=== PATIENT | female | born 1940 | race Caucasian/White ===

== ENCOUNTER → 2016-03-07 | Outpatient (CLI) | payer MEDICARE, BC ==
[2016-03-07 10:05] LABS: ALT 39 U/L (9-52); AST 26 U/L (14-36); Cholesterol 212 mg/dL (<200); HDL Cholesterol 65 mg/dL (40-60); Triglycerides 159 mg/dL (<150)
== END | disposition home or self-care (01) ==
LOC: LABWHC1 08:58
PROVIDERS: ATTEND Internal Medicine Interventional Cardiology
DX: E78.2 Mixed hyperlipidemia (principal)
CPT/HCPCS: 36415; 80061; 84450; 84460

== ENCOUNTER → 2016-10-12 | Outpatient (CLI) | payer MEDICARE, BC ==
--- NOTE | 2016-10-13 07:02 | MM ---
Reason for exam: screening (asymptomatic). Last mammogram was performed 1 year ago. History: Patient is postmenopausal and history of other cancer. Benign cyst aspiration of the left breast, April 2013. Benign stereotactic core biopsy of the right breast, May 06, 1998. Benign core biopsy of the right breast. Benign excisional biopsy of the left breast. Took estrogen for 25 years beginning at age 36. Physical Findings: A clinical breast exam by your physician is recommended on an annual basis and results should be correlated with mammographic findings. MG 3D Screening Mammo W/Cad Bilateral CC and MLO view(s) were taken. Prior study comparison: October 06, 2015, bilateral MG 3d screening mammo w/cad. September 21, 2014, bilateral MG diagnostic mammo w CAD SAUL. The breast tissue is heterogeneously dense. This may lower the sensitivity of mammography. Previous mammotome biopsy in the right breast. There is chronic nodularity bilaterally. There is no dominant lesion. No significant changes when compared with prior studies. ASSESSMENT: Benign, BI-RAD 2 RECOMMENDATION: Routine screening mammogram of both breasts in 1 year.
== END | disposition home or self-care (01) ==
LOC: RADMAMWWP 08:50
PROVIDERS: ATTEND Family Medicine
DX: Z12.31 Encounter for screening mammogram for malignant neoplasm of breast (principal)
CPT/HCPCS: 77063; G0202

== ENCOUNTER → 2017-08-07 | Outpatient (CLI) | payer MEDICARE, BC ==
--- NOTE | 2017-08-07 20:02 | CONS ---
CONSULTATION DATE OF SERVICE: 08/07/2017. REASON FOR CONSULTATION: Feeling tired all the time. HISTORY: Carli is 77, and she is coming in for sleep apnea evaluation. She was referred to me by Dr. Gaston. She has been feeling progressively more fatigued and somewhat sleepy. She goes to bed around 10 p.m., wakes up 6 a.m. in the morning. Not sure if she snores or if he quits breathing. On a few occasions she was told to be restless in her legs. She is not aware of her sleep symptoms in general, as the patient is and her around five years ago and she is sleeping alone at home. Her current Truckee score of 15. No sleep paralysis. No hallucinations. No frequent arousals, gasping or choking sensation at nighttime. PAST MEDICAL HISTORY: Hyperlipidemia, hypertension, CVA, depression, peripheral neuropathy and hypothyroidism. SURGICAL HISTORY: Includes bowel obstruction requiring bowel resection, hysterectomy, back surgery x2, cholecystectomy. DRUG ALLERGIES: SULFA, RHONDA INHIBITORS, AMOXICILLIN. OUTPATIENT MEDICATION: 1. Levothyroxine 75 mcg p.o. daily. 2. Losartan 100 mg p.o. daily. 3. Plavix 75 mg p.o. daily. 4. Coreg 12.5 mg half tablet in the morning. 5. Coenzyme Q. 6. Vitamin D3 and calcium. 7. Fish oil. 8. Omeprazole 20 mg p.o. daily. 9. Gabapentin 100 mg at bedtime. 10.Amlodipine 5 mg p.o. daily. 11.Zoloft 100 mg p.o. daily. 12.Pravastatin 40 mg p.o. daily. SOCIAL HISTORY: The patient is a nonsmoker. No history of alcohol. No history of IV drugs. She is . FAMILY HISTORY: Negative for sleep apnea. REVIEW OF SYSTEMS: A 12-point review of system was done. Positive findings are mentioned above in the history of present illness. PHYSICAL EXAMINATION: Her current vitals, BP is 123/52, pulse 64, respirations 16, temperature 98.2, saturation 96% on room air. Weight is 146, height is 5 feet 2 inches, and neck size is 13.5 inches, BMI 26.2. GENERAL APPEARANCE: Calm, comfortable. No acute distress. HEAD: Atraumatic, normocephalic. NECK: Supple. There is no JVD. No goiter or neck masses. LUNGS: Clear to auscultation. HEART: Sounds regular rhythm. Normal S1, S2. No S3. No murmurs. ABDOMEN: Soft, nontender. No organomegaly. EXTREMITIES: No edema. No cyanosis. No clubbing. NEUROLOGIC: The patient is alert x3. There is no focal neurological deficits. IMPRESSION: 1. Excessive fatigue with limited hypersomnia. Truckee score, however, is elevated at 15. Overall suspicion for sleep apnea is low, yet this needs to be further investigated. 2. Hyperlipidemia. 3. Hypertension. 4. History of cerebrovascular accident. 5. History of depression. 6. History of peripheral neuropathy. 7. History of hypothyroidism. PLAN: 1. We will proceed with a sleep polysomnogram to investigate the patient's symptoms further. 2. We will continue to follow. ALFIEL / TERESAN: [id number] /
== END | disposition home or self-care (01) ==
LOC: SLEEP 14:11
PROVIDERS: ATTEND Internal Medicine Critical Care Medicine
DX: G47.10 Hypersomnia, unspecified (principal); E78.5 Hyperlipidemia, unspecified; I10 Essential (primary) hypertension; Z86.73 Personal history of transient ischemic attack (TIA), and cerebral infarction without residual deficits; Z86.59 Personal history of other mental and behavioral disorders; Z86.79 Personal history of other diseases of the circulatory system; Z86.39 Personal history of other endocrine, nutritional and metabolic disease; Z98.890 Other specified postprocedural states; Z90.49 Acquired absence of other specified parts of digestive tract; Z90.710 Acquired absence of both cervix and uterus; Z79.899 Other long term (current) drug therapy; Z79.02 Long term (current) use of antithrombotics/antiplatelets
CPT/HCPCS: 99211

== ENCOUNTER → 2017-10-23 | Outpatient (CLI) | payer MEDICARE, BC ==
--- NOTE | 2017-10-23 15:30 | SFUN ---
SLEEP CENTER FOLLOW UP NOTE 77-year-old female patient coming in to discuss the results of the sleep study. I performed a screening polysomnogram with this patient. The patient was found to have mild positional obstructive sleep apnea with an AHI of 9, worse in the supine body position. Never the less, the patient tells me that she is not having hypersomnia or sleepiness during the day. She sleeps on her side at home. We opted not to give this patient CPAP therapy at this point in time. We opted to monitor clinically. The patient is committed to lose 10% of her body weight over the next few months. Otherwise she is doing well. Sleep quality is good. She is waking up refreshed and alert during the day. No history of angina, no heartburn. Her current condition is stable for now. The BP is 137/54, pulse 62, respirations 16, temp 98.6, weight is 149. Height is 5 feet 2 inches. Saturation 94% on room air. BMI is 27.2. GENERAL APPEARANCE: Calm, comfortable. HEENT: Atraumatic, normocephalic. Neck is supple. No JVD. No goiter or neck mass. LUNGS: Clear to auscultation. HEART: Sounds regular rate and rhythm. Normal S1, S2. No S3. No murmurs. ABDOMEN: Soft, nontender. No organomegaly. EXTREMITIES: No edema. No cyanosis or clubbing. IMPRESSION: 1. Mild obstructive sleep apnea, positional, AHI of 9.1. 2. Adequate sleep architecture and deficiency. 3. Cerebrovascular accident history of. 4. Depression. 5. Hypertension. 6. Hyperlipidemia. PLAN: 1. Encourage sleeping on her sides and tennis ball technique will be implemented. 2. Encourage losing weight in the order of 10% of her body weight. 3. See me back in a year's time. No need for treatment as long as the patient is asymptomatic at this point in time. MMODL / IJN: [id number] /
== END | disposition home or self-care (01) ==
LOC: SLEEP 13:16
PROVIDERS: ATTEND Internal Medicine Critical Care Medicine
DX: G47.33 Obstructive sleep apnea (adult) (pediatric) (principal); G47.9 Sleep disorder, unspecified; F32.9 Major depressive disorder, single episode, unspecified; I10 Essential (primary) hypertension; E78.5 Hyperlipidemia, unspecified; Z86.73 Personal history of transient ischemic attack (TIA), and cerebral infarction without residual deficits

== ENCOUNTER → 2017-11-02 | Outpatient (CLI) | payer MEDICARE, BC ==
--- NOTE | 2017-11-02 17:19 | US ---
EXAMINATION TYPE: US venous doppler duplex LE LT DATE OF EXAM: 11/02/2017 5:01 PM COMPARISON: NONE CLINICAL HISTORY: R60.0 Swelling Left lower extremity. SIDE PERFORMED: left TECHNIQUE: The lower extremity deep venous system is examined utilizing real time linear array sonog carlos with graded compression, doppler sonography and color-flow sonography. VESSELS IMAGED: External Iliac Vein (EIV) Common Femoral Vein Deep Femoral Vein Greater Saphenous Vein * Femoral Vein Popliteal Vein Small Saphenous Vein * Proximal Calf Veins (* superficial vessels) Left Leg: Negative for DVT Bakers cyst measuring 4.5 x 2.1 x 3.4cm IMPRESSION: There is a right-sided popliteal cyst. No evidence of deep venous thrombosis in the left leg.
== END | disposition home or self-care (01) ==
LOC: RADUSMAIN 16:28
PROVIDERS: ATTEND Physician Assistant
DX: M71.21 Synovial cyst of popliteal space [Baker], right knee (principal); R60.0 Localized edema

== ENCOUNTER → 2017-11-26 | Outpatient (CLI) | payer MEDICARE, BC ==
--- NOTE | 2017-11-27 12:14 | ECHOF ---
Referral Reason:R94.31 ABN EKG MEASUREMENTS -------- HEIGHT: 157.5 cm WEIGHT: 67.1 kg BP: RVIDd: 2.3 cm (< 3.3) IVSd: 1.5 cm (0.6 - 1.1) LVIDd: 3.3 cm (3.9 - 5.3) LVPWd: 1.4 cm (0.6 - 1.1) IVSs: 1.8 cm LVIDs: 1.4 cm LVPWs: 1.6 cm LAESV Index (A-L): 25.63 ml/m Ao Diam: 3.1 cm (2.0 - 3.7) AV Cusp: 2.2 cm (1.5 - 2.6) LA Diam: 3.5 cm (2.7 - 3.8) MV EXCURSION: 6.833 mm (> 18.000) MV EF SLOPE: 23 mm/s (70 - 150) EPSS: 0.4 cm MV E Kaveh: 0.75 m/s MV DecT: 329 ms MV A Kaveh: 1.06 m/s MV E/A Ratio: 0.71 AR PHT: 580 ms RAP: 5.00 mmHg RVSP: 29.61 mmHg FINDINGS -------- Sinus rhythm. This was a technically good study. The left ventricular size is normal. There is borderline concentric left ventricular hypertrophy. Overall left ventricular systolic function is normal with, an EF between 55 - 60 %. The right ventricle is normal in size and function. The left atrium is normal in size. The right atrium is normal in size. Aortic valve is trileaflet and is mildly thickened. There is mild aortic regurgitation. The mitral valve leaflets are mildly thickened. Mild mitral regurgitation is present. Moderate tricuspid regurgitation present. The right ventricular systolic pressure, as measured by D oppler, is 29.61mmHg. Pulmonic valve appears structurally normal. The aortic root size is normal. Normal inferior vena cava with normal inspiratory collapse consistent with estimated right atrial pre ssure of 5 mmHg. The pericardium is normal. CONCLUSIONS -------- 1. Sinus rhythm. 2. This was a technically good study. 3. The left ventricular size is normal. 4. There is borderline concentric left ventricular hypertrophy. 5. Overall left ventricular systolic function is normal with, an EF between 55 - 60 %. 6. The right ventricle is normal in size and function. 7. The left atrium is normal in size. 8. The right atrium is normal in size. 9. Aortic valve is trileaflet and is mildly thickened. 10. There is mild aortic regurgitation. 11. The mitral valve leaflets are mildly thickened. 12. Mild mitral regurgitation is present. 13. Moderate tricuspid regurgitation present. 14. The right ventricular systolic pressure, as measured by Doppler, is 29.61mmHg. 15. Pulmonic valve appears structurally normal. 16. The aortic root size is normal. 17. Normal inferior vena cava with normal inspiratory collapse consistent with estimated right atrial pressure of 5 mmHg. 18. The pericardium is normal. FUR STRETCHER: Mary Benavidez RDCS
== END ==
LOC: RADECHMAIN 12:46
PROVIDERS: ATTEND Family Medicine
DX: I08.3 Combined rheumatic disorders of mitral, aortic and tricuspid valves (principal)
CPT/HCPCS: 93306

== ENCOUNTER → 2018-03-22 | Outpatient (CLI) | payer MEDICARE, BC ==
--- NOTE | 2018-03-22 14:39 | XR ---
EXAMINATION TYPE: XR chest 2V DATE OF EXAM: 03/22/2018 COMPARISON: Prior chest x-ray 07/01/2014 HISTORY: Persistent cough TECHNIQUE: Frontal and lateral views of the chest are obtained. FINDINGS: There is a scoliosis. Postop changes are again noted in the thoracic lumbar spine. Biapica l pleural thickening is noted. No evident airspace disease, pneumothorax, or pleural effusion. Aorta is dense and tortuous. Cardiac mediastinal silhouette, pulmonary vascularity and christian are unchanged. Prominent lung volumes suggest underlying COPD. Surgical clips present in the upper abdomen, patient is likely post cholecystectomy. Thoracic spondylosis is noted. Bone mineralization is reduced. IMPRESSION: No acute cardiopulmonary process. Follow-up as indicated.
== END | disposition home or self-care (01) ==
LOC: RADXRMAIN 14:15
PROVIDERS: ATTEND Family Medicine
DX: R05 Cough (principal)
CPT/HCPCS: 71046

== ENCOUNTER 2018-04-19 08:55 | Day surgery (SDC) | payer MEDICARE, BC ==
[2018-04-17 14:17] VITALS: BMI 26.5
[~2018-04-19 08:55] MED LIST: LACTATED RINGERS 1,000 ML IV SCH
[2018-04-19 09:37] VITALS: RESP 16; TEMP 97.9
[2018-04-19] MEDS ORDERED: LIDOCAINE 1% 20 ML VIAL (10MG/ML) FOR IV START SQ ONE (09:38)
[2018-04-19 09:43] LABS: Glucose,Whole Blood 67 mg/dL (75-99)
[2018-04-19] MEDS ORDERED: LIDOCAINE 1% INJ 10MG/ML (20 ML MDV) ONE (10:19)
[2018-04-19] MEDS ORDERED: PROPOFOL 10 MG/ML 20 ML VIAL IV ONE (10:19)
--- NOTE | 2018-04-19 10:39 | P.PCN ---
Date of Procedure: 04/19/18 Procedure(s) Performed: BRIEF HISTORY: Patient is a 78-year-old pleasant white female, scheduled for an elective colonoscopy as a part of change in bowel habits. Lately she has been having intermittent fecal incontinence. PROCEDURE PERFORMED: Colonoscopy. PREOPERATIVE DIAGNOSIS: Change Bowel habits. IV sedation per Anesthesia. PROCEDURE: After informed consent was obtained, the patient, was brought into the endoscopy unit. IV sedation was administered by Anesthesia under continuous monitoring. Digital rectal examination was normal. Initially the Olympus CF- 160 flexible video colonoscope was then inserted in the rectum, gradually advanced into the cecum without any difficulty. Careful examination was performed as the scope was gradually being withdrawn. Ileocecal valve and the appendiceal orifice were visualized and appeared normal. Prep was excellent. Mucosa of the cecum, ascending colon, transverse colon, descending colon, sigmoid colon, and rectum appeared normal. Scattered sigmoid diverticulosis seen. Retroflexion was performed in the rectum and no lesions were seen. The patient tolerated the procedure well. IMPRESSION: Normal-appearing colon from rectum to cecum with no evidence of colon neoplasia. Scattered sigmoid diverticulosis RECOMMENDATIONS: Findings of this examination were discussed with the patient in his family. She was advised to be on a high-fiber diet and take fiber supplements on a regular basis.
[2018-04-19 11:20] LABS: Glucose,Whole Blood 67 mg/dL (75-99)
[2018-04-19 11:20] LABS: Glucose,Whole Blood 66 mg/dL (75-99)
[2018-04-19 11:29] VITALS: BP 171/78; PULSE 83
[2018-04-19 11:40] LABS: Glucose,Whole Blood 74 mg/dL (75-99)
== END 2018-04-19 11:53 | disposition home or self-care (01) ==
LOC: ORWHC2ENDO 08:55
PROVIDERS: ATTEND Internal Medicine Gastroenterology
DX: K57.30 Diverticulosis of large intestine without perforation or abscess without bleeding (principal); I10 Essential (primary) hypertension; E78.5 Hyperlipidemia, unspecified; J45.909 Unspecified asthma, uncomplicated; E03.9 Hypothyroidism, unspecified; F32.9 Major depressive disorder, single episode, unspecified; K44.9 Diaphragmatic hernia without obstruction or gangrene; F41.9 Anxiety disorder, unspecified; G62.9 Polyneuropathy, unspecified; M41.9 Scoliosis, unspecified; Z79.899 Other long term (current) drug therapy; Z79.02 Long term (current) use of antithrombotics/antiplatelets; Z79.890 Hormone replacement therapy; Z79.51 Long term (current) use of inhaled steroids; Z88.8 Allergy status to other drugs, medicaments and biological substances; Z88.2 Allergy status to sulfonamides; Z88.0 Allergy status to penicillin; Z88.1 Allergy status to other antibiotic agents; Z86.2 Personal history of diseases of the blood and blood-forming organs and certain disorders involving the immune mechanism
CPT/HCPCS: 45378; J2001; J2704

== ENCOUNTER → 2018-06-06 | Outpatient (CLI) | payer MEDICARE, BC ==
--- NOTE | 2018-06-07 10:47 | BD ---
EXAMINATION TYPE: Axial Bone Density DATE OF EXAM: 06/06/2018 COMPARISON: NONE CLINICAL HISTORY: Postmenopausal female. Osteoporosis screening. Height: 62 Weight: 150.4 FRAX RISK QUESTIONS: Alcohol (3 or more units per day): no Family History (Parent hip fracture): no Glucocorticoids (More than 3mos): no (Ex: prednisone, prednisolone, methylprednisolone, dexamethasone, and hydrocortisone). History of Fracture in Adulthood: no Secondary Osteoporosis: 1. Type 1 Diabetes: no 2. Hyperthyroidism: no 3. Menopause before 45: yes 4. Malnutrition: no 5. Chronic liver disease: no Rheumatoid Arthritis: no Current Tobacco Use: no RISK FACTORS HISTORY OF: Surgery to Spine/Hip(right/left)/Wrist (right/left): back surgery When: 2007 Family History of Osteoporosis: yes Active: yes Diet low in dairy products/other sources of calcium: no Postmenopausal woman: hysterectomy 34 Lost more than 2 inches in height since high school: no MEDICATIONS: pt takes multiple medications steroids: just for current asthma issues How Lon days Thyroid Medications: synthroid How Lon years Additional History: EXAM MEASUREMENTS: Bone mineral densitometry was performed using the SpineVision System. Bone mineral density about the R hip (g/cm2): 0.840 Bone mineral density about the L hip (g/cm2): 0.885 T Score values are as follows: -----R Neck: -1.4 -----L Neck: -1.1 -----R Total: -2.3 -----L Total: -1.3 Bone mineral density has: decreased -2.5 % since study of: 10.06.2015 Bone mineral density about the R Wrist (g/cm2): Bone mineral density about the L Wrist (g/cm2): 0.478 T Score values are as follows: -----Dist. R+U: -2.8 -----Prox. R+U: -2.7 -----Radius total: -3.3 Bone mineral density: baseline IMPRESSION: Osteoporosis (T Score less than -2.5). There is increased fracture risk and therapy is usually indicated based on age. Re-Screen 1-2 years. NOTE: T-SCORE=SD OF THE YOUNG ADULT MEAN.
== END | disposition home or self-care (01) ==
LOC: RADBDWWP 15:26
PROVIDERS: ATTEND Family Medicine
DX: M81.0 Age-related osteoporosis without current pathological fracture (principal)
CPT/HCPCS: 77080

== ENCOUNTER → 2018-11-05 | Outpatient (CLI) | payer MEDICARE, BC ==
--- NOTE | 2018-11-05 16:59 | XR ---
EXAMINATION TYPE: XR chest 2V DATE OF EXAM: 11/05/2018 COMPARISON: Prior chest x-ray 03/22/2018 HISTORY: Cough TECHNIQUE: Frontal and lateral views of the chest are obtained. FINDINGS: There is no focal air space opacity, pleural effusion, or pneumothorax seen. The cardiac silhouette size is within normal limits. The osseous structures are stable, postop changes are note d to the thoracic lumbar spine and there is a spinal curvature. Aorta is tortuous and dense. Biapical pleural thickening is present. There is bronchial wall thickening, prominent lung volume may be heidy cative of underlying COPD. IMPRESSION: Correlate for bronchitis, reactive airways disease.
== END | disposition home or self-care (01) ==
LOC: RADXRMAIN 16:04
PROVIDERS: ATTEND Otolaryngology
DX: R05 Cough (principal)
CPT/HCPCS: 71046

== ENCOUNTER → 2018-11-14 | Outpatient (CLI) | payer MEDICARE, BC ==
--- NOTE | 2018-11-15 13:48 | MM ---
Reason for exam: screening (asymptomatic). Last mammogram was performed 1 year and 1 month ago. History: Patient is postmenopausal and history of other cancer. Benign cyst aspiration of the left breast, April 2013. Benign stereotactic core biopsy of the right breast, May 06, 1998. Benign core biopsy of the right breast. Benign excisional biopsy of the left breast. Took estrogen for 25 years beginning at age 36. Physical Findings: A clinical breast exam by your physician is recommended on an annual basis and results should be correlated with mammographic findings. MG 3D Screening Mammo W/Cad Bilateral CC and MLO view(s) were taken. Prior study comparison: October 19, 2017, bilateral MG 3d screening mammo w/cad. October 12, 2016, bilateral MG 3d screening mammo w/cad. The breast tissue is heterogeneously dense. This may lower the sensitivity of mammography. Finding: Architectural distortion located 4 cm from the nipple in the middle position of the left breast on CC view. New finding since October 19, 2017 and October 12, 2016. ASSESSMENT: Incomplete: need additional imaging evaluation, BI-RAD 0 RECOMMENDATION: Ultrasound of the left breast. [facility] will attempt to contact patient to return for ultrasound.
== END | disposition home or self-care (01) ==
LOC: RADMAMWWP 08:55
PROVIDERS: ATTEND Family Medicine
DX: Z12.31 Encounter for screening mammogram for malignant neoplasm of breast (principal)
CPT/HCPCS: 77063; 77067

== ENCOUNTER → 2018-11-14 | Outpatient (CLI) | payer MEDICARE, BC ==
[2018-11-14 17:12] LABS: Protein, Total 5.9 g/dL (6.2-8.2)
[2018-11-14 17:24] LABS: Ferritin 48.4 ng/mL (10.0-291.0)
[2018-11-14 19:44] LABS: Hemoglobin A1C 4.6 % (4.0-6.0)
[2018-11-15 12:19] LABS: Albumin 3.78 g/dL (3.80-4.90); Gamma Globulin 0.64 g/dL (0.70-1.50)
[2018-11-15 14:06] LABS: Lyme IgG/IgM 0.13 Index
== END | disposition home or self-care (01) ==
LOC: LABWHC1 08:57
PROVIDERS: ATTEND Psychiatry & Neurology Neurology
DX: R73.09 Other abnormal glucose (principal); G25.81 Restless legs syndrome; G62.9 Polyneuropathy, unspecified
CPT/HCPCS: 36415; 82607; 82728; 82747; 83036; 83540; 84165; 85652; 86038; 86618

== ENCOUNTER → 2018-11-20 | Outpatient (CLI) | payer MEDICARE, BC ==
[2018-11-20 18:00] LABS: Chol/HDL Ratio 2.17; LDL Cholesterol,Calculated 63.4 mg/dL (0.0-131.0); VLDL Calculation 11.6 mg/dL (5.00-40.00)
== END | disposition home or self-care (01) ==
LOC: LABWHC1 08:16
PROVIDERS: ATTEND Internal Medicine Interventional Cardiology
DX: E78.2 Mixed hyperlipidemia (principal)
CPT/HCPCS: 36415; 80061; 84450; 84460

== ENCOUNTER → 2018-11-28 | Outpatient (CLI) | payer MEDICARE, BC | END | disposition home or self-care (01) | LOC: CPPFTMAIN 10:59 | PROVIDERS: ATTEND Otolaryngology | DX: I99.8 Other disorder of circulatory system (principal) | CPT/HCPCS: 94010; 94060; 94726 ==

== ENCOUNTER → 2018-11-28 | Outpatient (CLI) | payer MEDICARE, BC ==
--- NOTE | 2018-11-28 11:48 | USB ---
Reason for exam: additional evaluation requested from abnormal screening. History: Patient is postmenopausal and history of other cancer. Benign cyst aspiration of the left breast, April 2013. Benign stereotactic core biopsy of the right breast, May 06, 1998. Benign core biopsy of the right breast. Benign excisional biopsy of the left breast. Took estrogen for 25 years beginning at age 36. Physical Findings: Nurse did not find any significant physical abnormalities on exam. US Breast Workup LT Left complete breast ultrasound includes all four quadrants, the retroareolar region and axilla. Finding demonstrates no cystic or solid lesion seen. Stable distortion from 2017 mammogram. History of excisional biopsy. These results were verbally communicated with the patient and result sheet given to the patient on 11/28/18. ASSESSMENT: Negative, BI-RAD 1 RECOMMENDATION: Return to routine screening mammogram schedule for both breasts.
== END | disposition home or self-care (01) ==
LOC: RADUSWWP 09:57
PROVIDERS: ATTEND Family Medicine
DX: R92.8 Other abnormal and inconclusive findings on diagnostic imaging of breast (principal)

== ENCOUNTER → 2019-04-03 | Outpatient (CLI) | payer MEDICARE, BC ==
[~2019-04-03] MED LIST changes: +DENOSUMAB 60 MG/ML 1 ML SYRINGE SQ NR; -LACTATED RINGERS 1,000 ML IV SCH
[2019-04-03 14:07] VITALS: BP 132/73; PULSE 60; RESP 14; TEMP 98
== END | disposition home or self-care (01) ==
LOC: PROCWHC3 13:27
PROVIDERS: ATTEND Family Medicine
DX: M81.0 Age-related osteoporosis without current pathological fracture (principal)
CPT/HCPCS: 96372; J0897

== ENCOUNTER → 2019-10-08 | Outpatient (CLI) | payer MEDICARE, BC ==
[2019-10-08 11:38] VITALS: BP 121/64; PULSE 56; RESP 16; TEMP 98.2
== END | disposition home or self-care (01) ==
LOC: PROCWHC3 10:56
PROVIDERS: ATTEND Family Medicine
DX: M81.0 Age-related osteoporosis without current pathological fracture (principal)
CPT/HCPCS: 96372; J0897

== ENCOUNTER → 2019-11-17 | Outpatient (CLI) | payer MEDICARE, BC ==
--- NOTE | 2019-11-18 08:35 | MM ---
Reason for exam: screening (asymptomatic). Last mammogram was performed 1 year ago. History: Patient is postmenopausal and history of other cancer. Benign cyst aspiration of the left breast, April 2013. Benign stereotactic core biopsy of the right breast, May 06, 1998. Benign core biopsy of the right breast. Benign excisional biopsy of the left breast. Took estrogen for 25 years beginning at age 36. Physical Findings: A clinical breast exam by your physician is recommended on an annual basis and results should be correlated with mammographic findings. MG 3D Screening Mammo W/Cad Bilateral CC and MLO view(s) were taken. Prior study comparison: November 14, 2018, bilateral MG 3d screening mammo w/cad. October 19, 2017, bilateral MG 3d screening mammo w/cad. The breast tissue is heterogeneously dense. This may lower the sensitivity of mammography. Benign appearing bilateral calcifications. Previous mammotome biopsy in the right breast. There is chronic nodularity in the left breast. No significant changes when compared with prior studies. ASSESSMENT: Benign, BI-RAD 2 RECOMMENDATION: Routine screening mammogram of both breasts in 1 year.
== END | disposition home or self-care (01) ==
LOC: RADMAMWWP 09:49
PROVIDERS: ATTEND Family Medicine
DX: Z12.31 Encounter for screening mammogram for malignant neoplasm of breast (principal)
CPT/HCPCS: 77063; 77067

== ENCOUNTER → 2020-04-12 | Outpatient (CLI) | payer MEDICARE, BC ==
[2020-04-12 13:15] VITALS: BP 151/69; PULSE 67; RESP 18; TEMP 97.6
== END | disposition home or self-care (01) ==
LOC: PROCWHC3 12:59
PROVIDERS: ATTEND Family Medicine
DX: M81.0 Age-related osteoporosis without current pathological fracture (principal)
CPT/HCPCS: 96372; J0897

== ENCOUNTER → 2020-09-13 | Outpatient (CLI) | payer MEDICARE, BC ==
--- NOTE | 2020-09-13 08:06 | US ---
EXAMINATION TYPE: US venous doppler duplex LE BI DATE OF EXAM: 09/13/2020 7:51 AM COMPARISON: 11/02/2017 CLINICAL HISTORY: 80-year-old female I82.40 DVT; M79.606 LEG PAIN. Intermittent bilateral calf pain x couple years, patient on blood thinners SIDE PERFORMED: Bilateral TECHNIQUE: The lower extremity deep venous system is examined utilizing real time linear array sonog carlos with graded compression, doppler sonography and color-flow sonography. VESSELS IMAGED: Common Femoral Vein Deep Femoral Vein Greater Saphenous Vein * Femoral Vein Popliteal Vein Small Saphenous Vein * Proximal Calf Veins (* superficial vessels) Right Leg: Appears negative for DVT Left Leg: Appears negative for DVT Left popliteal fossa: 4.5 x 1.9 x 3.0cm Conteh's cyst (versus 4.5 x 3.4 cm on 11/02/2017) IMPRESSION: 1. No evidence for DVT within the bilateral lower extremities imaged from the groin to the upper calv es. 2. Redemonstrated small to moderate-sized Conteh's cyst on the left.
== END | disposition home or self-care (01) ==
LOC: RADUSWWP 07:23
PROVIDERS: ATTEND Psychiatry & Neurology Neurology
DX: M71.22 Synovial cyst of popliteal space [Baker], left knee (principal)
CPT/HCPCS: 93970

== ENCOUNTER → 2020-10-18 | Outpatient (CLI) | payer MEDICARE, BC ==
[~2020-10-18] MED LIST changes: -DENOSUMAB 60 MG/ML 1 ML SYRINGE SQ NR; +DENOSUMAB 60 MG/ML 1 ML SYRINGE SQ ONE
[2020-10-18 12:41] VITALS: BP 123/75; PULSE 76; RESP 16; TEMP 98.4
== END ==
LOC: PROCWHC3 11:55
PROVIDERS: ATTEND Family Medicine
DX: M81.0 Age-related osteoporosis without current pathological fracture (principal); Z88.1 Allergy status to other antibiotic agents; Z88.2 Allergy status to sulfonamides; Z88.8 Allergy status to other drugs, medicaments and biological substances
CPT/HCPCS: 96372; J0897

== ENCOUNTER → 2021-03-17 | Outpatient (CLI) | payer MEDICARE, BC ==
--- NOTE | 2021-03-18 11:38 | MM ---
Reason for exam: screening (asymptomatic). Last mammogram was performed 1 year and 4 months ago. History: Patient is postmenopausal and history of other cancer. Benign cyst aspiration of the left breast, April 2013. Benign stereotactic core biopsy of the right breast, May 06, 1998. Benign core biopsy of the right breast. Benign excisional biopsy of the left breast. Took estrogen for 25 years beginning at age 36. Physical Findings: A clinical breast exam by your physician is recommended on an annual basis and results should be correlated with mammographic findings. MG 3D Screening Mammo W/Cad Bilateral CC, MLO, and XCCL view(s) were taken. Prior study comparison: November 17, 2019, bilateral MG 3d screening mammo w/cad. November 14, 2018, bilateral MG 3d screening mammo w/cad. The breast tissue is heterogeneously dense. This may lower the sensitivity of mammography. Previous mammotome biopsy in the right breast. No significant changes when compared with prior studies. ASSESSMENT: Benign, BI-RAD 2 RECOMMENDATION: Routine screening mammogram of both breasts in 1 year.
== END | disposition home or self-care (01) ==
LOC: RADMAMWWP 13:08
PROVIDERS: ATTEND Family Medicine
DX: Z12.31 Encounter for screening mammogram for malignant neoplasm of breast (principal); Z78.0 Asymptomatic menopausal state
CPT/HCPCS: 77063; 77067

== ENCOUNTER → 2021-03-30 | Outpatient (CLI) | payer MEDICARE, BC ==
[2021-03-30 14:47] LABS: African American GFR (CKD) 94.8 (60.0-200.0); Albumin 4.4 g/dL (3.8-4.9); Albumin/Globulin Ratio 1.83 (1.60-3.17); Anion Gap 12.1 mmol/L (10.00-18.00); BUN/Creat Ratio 26.57 Ratio (12.00-20.00); Blood Urea Nitrogen 18.6 mg/dL (9.0-27.0); Calcium 9.9 mg/dL (8.7-10.3); Carbon Dioxide 25.9 mmol/L (20.0-27.5); Globulin 2.4 g/dL (1.6-3.3); Non-African American GFR(CKD) 81.8 (60.0-200.0); Potassium 4.1 mmol/L (3.5-5.5); Total Bilirubin 0.5 mg/dL (0.30-1.20); Total Protein 6.8 g/dL (6.2-8.2)
[2021-03-30 14:48] LABS: HDL Cholesterol 88.3 mg/dL (40.00-60.00); Triglycerides 39.9 mg/dL (0.00-149.00)
[2021-03-30 15:00] LABS: Chol/HDL Ratio 1.88 Ratio
== END | disposition home or self-care (01) ==
LOC: LABWHC1 07:47
PROVIDERS: ATTEND Nurse Practitioner Adult Health
DX: E78.2 Mixed hyperlipidemia (principal)
CPT/HCPCS: 36415; 80053; 80061; 83721

== ENCOUNTER → 2021-04-20 | Outpatient (CLI) | payer MEDICARE, BC ==
[~2021-04-20] MED LIST changes: +DENOSUMAB 60 MG/ML 1 ML SYRINGE SQ NR; -DENOSUMAB 60 MG/ML 1 ML SYRINGE SQ ONE
[2021-04-20 09:39] VITALS: BP 118/67; PULSE 65; RESP 16; TEMP 97.7
== END ==
LOC: PROCWHC3 09:15
PROVIDERS: ATTEND Family Medicine
DX: M81.0 Age-related osteoporosis without current pathological fracture (principal); E03.9 Hypothyroidism, unspecified; F41.9 Anxiety disorder, unspecified; F32.A Depression, unspecified; I10 Essential (primary) hypertension; J45.909 Unspecified asthma, uncomplicated; Z79.51 Long term (current) use of inhaled steroids; Z79.890 Hormone replacement therapy; Z86.73 Personal history of transient ischemic attack (TIA), and cerebral infarction without residual deficits; Z79.899 Other long term (current) drug therapy; Z79.01 Long term (current) use of anticoagulants; Z88.8 Allergy status to other drugs, medicaments and biological substances; Z88.1 Allergy status to other antibiotic agents; Z88.6 Allergy status to analgesic agent; Z88.2 Allergy status to sulfonamides
CPT/HCPCS: 96372; J0897

== ENCOUNTER → 2021-06-09 | Outpatient (CLI) | payer MEDICARE, BC ==
--- NOTE | 2021-06-09 11:59 | BD ---
EXAMINATION TYPE: Axial Bone Density DATE OF EXAM: 06/09/2021 COMPARISON: Prior exam 06/06/2018 CLINICAL HISTORY: 81 years year old Female. ICD-10 CODE: M81.0 AGE RELATED OSTEOPOROSIS Height: 62 Weight: 152 FRAX RISK QUESTIONS: Alcohol (3 or more units per day): NO Family History (Parent hip fracture): NO Glucocorticoids (More than 3mos): NO (Ex: prednisone, prednisolone, methylprednisolone, dexamethasone, and hydrocortisone). History of Fracture in Adulthood: NO Secondary Osteoporosis: 1. Type 1 Diabetes: NO 2. Hyperthyroidism: NO 3. Menopause before 45: NO 4. Malnutrition: NO 5. Chronic liver disease: NO Rheumatoid Arthritis: NO Current Tobacco Use: NO RISK FACTORS HISTORY OF: Spine Fracture: yes When: 2007 Surgery to Spine)/Wrist (right/left): YES CARPAL TUNNEL BILATERAL When: 2020 Active: YES Diet low in dairy products/other sources of calcium: NO Postmenopausal woman: YES Lost more than 2 inches in height since high school: NO Frequent falls: YES Adrenal Insufficiency: MEDICATIONS: Thyroid Medications: synthroid past 25 years Osteoporosis Medications: yes Which medication: Prolia past 2 years, Calcium past 10 years Additional History: Bone mineral density about the R hip (g/cm2): 0.752 Bone mineral density about the L hip (g/cm2): 0.919 T Score values are as follows: -----R Neck: 0.4 -----L Neck: -1.3 -----R Total: 2.0 -----L Total: -0.7 Bone mineral density has: INCREASED 7.3% % since study of: 06.06.2018 FRAX%s: The graph provided illustrates a 12.6% chance for a major osteoporotic fx and a 2.8 chance fo r the hips probability for fx in 10 years time. IMPRESSION: Osteopenia (T Score between -2.5 and -1). There is slightly increased risk of fracture and the patient may be considered for treatment. Re-Screen 2-5 years. NOTE: T-SCORE=SD OF THE YOUNG ADULT MEAN.
== END | disposition home or self-care (01) ==
LOC: RADBDWWP 07:46
PROVIDERS: ATTEND Family Medicine
DX: M85.852 Other specified disorders of bone density and structure, left thigh (principal)
CPT/HCPCS: 77080

== ENCOUNTER → 2021-10-05 | Outpatient (CLI) | payer MEDICARE, BC ==
[2021-10-05 15:39] LABS: ALT 16 U/L (8-44); AST 22 U/L (13-35); Chol/HDL Ratio 2.16 Ratio; LDL Cholesterol,Calculated 72.8 mg/dL (0.0-131.0); VLDL Calculation 16.78 mg/dL (5.00-40.00)
== END | disposition home or self-care (01) ==
LOC: LABWHC1 08:29
PROVIDERS: ATTEND Internal Medicine Interventional Cardiology
DX: E78.2 Mixed hyperlipidemia (principal)
CPT/HCPCS: 36415; 80061; 84450; 84460

== ENCOUNTER → 2021-10-25 | Outpatient (CLI) | payer MEDICARE, BC ==
[~2021-10-25] MED LIST changes: -DENOSUMAB 60 MG/ML 1 ML SYRINGE SQ NR; +DENOSUMAB 60 MG/ML 1 ML SYRINGE SQ ONE
[2021-10-25 10:31] VITALS: BP 164/72; PULSE 62; RESP 16; TEMP 98
== END ==
LOC: PROCWHC3 10:13
PROVIDERS: ATTEND Family Medicine
DX: M81.0 Age-related osteoporosis without current pathological fracture (principal); Z88.8 Allergy status to other drugs, medicaments and biological substances; Z88.1 Allergy status to other antibiotic agents; Z88.2 Allergy status to sulfonamides
CPT/HCPCS: 96372; J0897

== ENCOUNTER → 2022-05-25 | Outpatient (CLI) | payer MEDICARE, BC ==
[2022-05-25 11:27] LABS: Chol/HDL Ratio 2.03 Ratio; LDL Cholesterol,Calculated 73.2 mg/dL (0.0-131.0); VLDL Calculation 10.36 mg/dL (5.00-40.00)
[2022-05-25 11:30] LABS: ALT 24 U/L (8-44); AST 22 U/L (13-35); African American GFR (CKD) 94.2 (60.0-200.0); Albumin 4.4 g/dL (3.8-4.9); Alkaline Phosphatase 98 U/L (41-126); BUN/Creat Ratio 22.43 Ratio (12.00-20.00); Blood Urea Nitrogen 15.7 mg/dL (9.0-27.0); Calcium 9.7 mg/dL (8.7-10.3); Carbon Dioxide 29.2 mmol/L (20.0-27.5); Chloride 97 mmol/L (96-109); Glucose 75 mg/dL (70-110); Non-African American GFR(CKD) 81.3 (60.0-200.0); Potassium 4.1 mmol/L (3.5-5.5); Sodium 135 mmol/L (135-145); Total Protein 6.4 g/dL (6.2-8.2)
[2022-05-25 22:13] LABS: Protein, Total 6.3 g/dL (6.2-8.2)
[2022-05-25 22:38] LABS: Creatine Kinase 104 U/L (26-186)
[2022-05-26 01:04] LABS: Anti-DNA, DS unit <1.0 IU/mL; DNA Double-Stranded NEGATIVE (NEGATIVE)
[2022-05-26 09:59] LABS: Lyme IgG/IgM 0.08 Index
[2022-05-27 08:56] LABS: Albumin 4.08 g/dL (3.80-4.90); Gamma Globulin 0.59 g/dL (0.70-1.50)
== END | disposition home or self-care (01) ==
LOC: LABWHC1 08:27
PROVIDERS: ATTEND Internal Medicine Interventional Cardiology
DX: E78.2 Mixed hyperlipidemia (principal); G62.9 Polyneuropathy, unspecified
CPT/HCPCS: 36415; 80053; 80061; 82550; 82607; 82747; 83036; 84165; 84207; 85652; 86038; 86225; 86618

== ENCOUNTER → 2022-05-25 | Outpatient (CLI) | payer MEDICARE, BC ==
[~2022-05-25] MED LIST changes: +DENOSUMAB 60 MG/ML 1 ML SYRINGE SQ NR; -DENOSUMAB 60 MG/ML 1 ML SYRINGE SQ ONE
[2022-05-25 12:45] VITALS: BP 156/67; PULSE 62; RESP 16; TEMP 98.2
== END ==
LOC: PROCWHC3 12:28
PROVIDERS: ATTEND Family Medicine
DX: M81.0 Age-related osteoporosis without current pathological fracture (principal); Z88.6 Allergy status to analgesic agent; Z88.0 Allergy status to penicillin; Z88.2 Allergy status to sulfonamides; Z88.8 Allergy status to other drugs, medicaments and biological substances
CPT/HCPCS: 96372

== ENCOUNTER → 2022-06-21 | Outpatient (CLI) | payer MEDICARE, BC ==
--- NOTE | 2022-06-21 15:14 | XR ---
EXAMINATION TYPE: XR chest 2V DATE OF EXAM: 06/21/2022 COMPARISON: 11/05/2018 TECHNIQUE: PA and lateral views submitted. HISTORY: Cough FINDINGS: The lungs are clear and there is no pneumothorax, pleural effusion, or focal pneumonia. Heart size normal and no overt failure. Osseous structures demonstrate hypertrophic and degenerative changes of the spine. Postsurgical change of the spine. IMPRESSION: 1. No acute process.
== END | disposition home or self-care (01) ==
LOC: RADXRMAIN 14:24
PROVIDERS: ATTEND Internal Medicine
DX: R05.9 Cough, unspecified (principal)
CPT/HCPCS: 71046

== ENCOUNTER → 2022-11-27 | Outpatient (CLI) | payer MEDICARE, BC ==
[2022-11-27 09:04] VITALS: BP 135/66; PULSE 81; RESP 16; TEMP 98.1
== END ==
LOC: PROCWHC3 08:47
PROVIDERS: ATTEND Family Medicine
DX: M81.0 Age-related osteoporosis without current pathological fracture (principal)
CPT/HCPCS: 96372; J0897

== ENCOUNTER → 2023-04-17 | Outpatient (CLI) | payer MEDICARE, BC ==
--- NOTE | 2023-04-17 22:08 | US ---
EXAMINATION TYPE: US bladder DATE OF EXAM: 04/17/2023 COMPARISON: NONE CLINICAL INDICATION: Female, 83 years old with history of N32.89 OTHER SPECIFIED DISORDERS OF BLADDER ; Painful bladder spasm. Hx bladder suspension x 2. TECHNIQUE: Multiple sonographic images of the bladder are obtained. FINDINGS: NEURO OPHTHALMOLOGIST NOTES: Patient states her bladder was full and she could not hold any longer. Prevoid bladder volume of only 186 mL. Post Void Residual Volume: 4.8 ml mL Color Doppler performed to assess ureteral jets. Bilateral Jets seen: Yes Normal Post Void Residual (less than 50ml): Yes IMPRESSION: There is only partial filling of the bladder at 186 mL but the patient feels that the bladder is full . No sonographic evidence for urinary retention.
== END | disposition home or self-care (01) ==
LOC: RADUSWWP 14:39
PROVIDERS: ATTEND Family Medicine
DX: N32.89 Other specified disorders of bladder (principal)
CPT/HCPCS: 76857

== ENCOUNTER → 2023-06-25 | Outpatient (CLI) | payer MEDICARE, BC ==
[2023-06-25 17:20] LABS: ALT 24 U/L (8-44); AST 29 U/L (13-35); Albumin 4.5 g/dL (3.8-4.9); Albumin/Globulin Ratio 2.14 Ratio (1.60-3.17); Alkaline Phosphatase 115 U/L (41-126); BUN/Creat Ratio 23.43 Ratio (12.00-20.00); Blood Urea Nitrogen 16.4 mg/dL (9.0-27.0); Calcium 10.6 mg/dL (8.7-10.3); Carbon Dioxide 27.9 mmol/L (21.6-31.8); Chloride 98 mmol/L (96-109); Chol/HDL Ratio 2.26 Ratio; Globulin 2.1 g/dL (1.6-3.3); Glucose 76 mg/dL (70-110); LDL Cholesterol,Calculated 70.3 mg/dL (0.0-131.0); Potassium 4.5 mmol/L (3.5-5.5); Sodium 136 mmol/L (135-145); Total Bilirubin 0.4 mg/dL (0.3-1.2); Total Protein 6.6 g/dL (6.2-8.2)
== END | disposition home or self-care (01) ==
LOC: LABWHC1 08:31
PROVIDERS: ATTEND Internal Medicine Interventional Cardiology
DX: I10 Essential (primary) hypertension (principal); E78.2 Mixed hyperlipidemia
CPT/HCPCS: 36415; 80053; 80061

== ENCOUNTER → 2023-07-10 | Outpatient (CLI) | payer MEDICARE, BC ==
--- NOTE | 2023-07-10 15:46 | US ---
EXAMINATION TYPE: US venous doppler duplex LE RT DATE OF EXAM: 07/10/2023 3:39 PM COMPARISON: US 2020 CLINICAL INDICATION: Female, 83 years old with history of R60.0 LOCALIZED EDEMA; Right leg pain SIDE PERFORMED: Right TECHNIQUE: The lower extremity deep venous system is examined utilizing real time linear array sonog carlos with graded compression, doppler sonography and color-flow sonography. VESSELS IMAGED: Common Femoral Vein Deep Femoral Vein Greater Saphenous Vein * Femoral Vein Popliteal Vein Small Saphenous Vein * Proximal Calf Veins (* superficial vessels) Right Leg: Appears negative for DVT IMPRESSION: 1. Right lower extremity ultrasound negative for deep venous thrombosis.
== END | disposition home or self-care (01) ==
LOC: RADUSWWP 15:18
PROVIDERS: ATTEND Family Medicine
DX: M79.604 Pain in right leg (principal); R60.0 Localized edema

== ENCOUNTER 2023-09-10 13:16 | Emergency (ER) | payer MEDICARE, BC ==
--- NOTE | 2023-09-10 13:43 | ED ---
Fall HPI - General Chief Complaint: Fall Stated Complaint: Fall on thinners-head injury Time Seen by Provider: 09/10/23 13:40 Source: patient, RN notes reviewed Mode of arrival: wheelchair Limitations: no limitations - History of Present Illness Initial Comments: 83-year-old female presented ER with a chief complaint of a fall. Patient was attempting to open a door but the door was locked. She states she pulled on the door and when it didn't open she lost her balance falling backwards. She does state she hit the back of her head. She fell from a standing position. She denies loss of consciousness after head injury. She does take Plavix daily. Patient denies any other injuries or complaints. Denies any dizziness, lightheadedness, chest pain or shortness of breath prior to fall. Patient does report a bump on the back of her head. Denies any other pain or injuries. She took Tylenol prior to arrival. - Related Data Home Medications Medication Instructions Recorded Confirmed Levothyroxine Sodium [Synthroid] 75 mcg PO DAILY 07/01/14 09/10/23 Sertraline HCl [Zoloft] 150 mg PO HS 07/01/14 09/10/23 Carvedilol [Coreg] 12.5 mg PO BID 09/28/15 09/10/23 Calcium Carbonate [Calcium] 600 tab PO DAILY 04/03/19 09/10/23 hydroCHLOROthiazide 25 mg PO DAILY 04/03/19 09/10/23 Denosumab [Prolia] 60 mg SQ Q180D 10/25/21 09/10/23 Famotidine [Pepcid] 40 mg PO HS 10/25/21 09/10/23 Solifenacin Succinate [Vesicare] 10 tab PO DAILY 05/25/22 09/10/23 Atorvastatin [Lipitor] 40 mg PO HS 09/10/23 09/10/23 Cetirizine HCl [Zyrtec] 10 mg PO HS 09/10/23 09/10/23 Losartan Potassium 100 mg PO DAILY 09/10/23 09/10/23 rOPINIRole HCL [Requip] 2 mg PO HS 09/10/23 09/10/23 Previous Rx's Medication Instructions Recorded Clopidogrel [Plavix] 75 mg PO DAILY #30 tab 07/03/14 Allergies Allergy/AdvReac Type Severity Reaction Status Date / Time RHONDA Inhibitors Allergy Cough Verified 09/10/23 16:21 amoxicillin Allergy Rash/Hives Verified 09/10/23 16:23 clindamycin Allergy Rash/Hives Verified 09/10/23 16:23 clindamycin HCl Allergy Rash/Hives Verified 09/10/23 16:23 [From Cleocin] clindamycin palmitate HCl Allergy Rash/Hives Verified 09/10/23 16:23 [From Cleocin] clindamycin phosphate Allergy Rash/Hives Verified 09/10/23 16:23 [From Cleocin] gabapentin Allergy Hallucinati Verified 09/10/23 16:21 ons Sulfa (Sulfonamide Allergy Unknown Verified 09/10/23 16:23 Antibiotics) Review of Systems ROS Statement: Those systems with pertinent positive or pertinent negative responses have been documented in the HPI. ROS Other: All systems not noted in ROS Statement are negative. Past Medical History Past Medical History: Asthma, Hyperlipidemia, Hypertension, Thyroid Disorder Additional Past Medical History / Comment(s): murmur,hiatal hernia, constipation, uti, incont of urine, neuropathy, scoliosis, anemia, chronic back pain,hypoglycemia, osteoporosis History of Any Multi-Drug Resistant Organisms: None Reported Past Surgical History: Back Surgery, Bowel Resection, Breast Surgery, Cholecystectomy, Hysterectomy, Joint Replacement, Tonsillectomy Additional Past Surgical History / Comment(s): cataracts,x2 back sx 2 rods 14 screws, ltbreast lumpectomy no cancer,rt knee arthroscopy, colonoscopy, 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, Right Total Knee Past Anesthesia/Blood Transfusion Reactions: Motion Sickness Additional Past Anesthesia/Blood Transfusion Reaction / Comment(s): no hx blood transfusion Past Psychological History: Anxiety, Depression Smoking Status: Never smoker Past Alcohol Use History: None Reported Past Drug Use History: None Reported - Past Family History Mother Family Medical History: Cancer Additional Family Medical History / Comment(s): lymphoma Father Additional Family Medical History / Comment(s): heart problems General Exam General appearance: alert, in no apparent distress Head exam: Present: other (Right posterior scalp hematoma no bruising, erythema, wounds or abrasions) Eye exam: Present: normal appearance, PERRL, EOMI. Absent: scleral icterus, conjunctival injection, periorbital swelling Pupils: Present: normal accommodation ENT exam: Present: normal exam, normal oropharynx, mucous membranes moist, TM's normal bilaterally Neck exam: Present: normal inspection. Absent: tenderness, meningismus, lymphadenopathy Respiratory exam: Present: normal lung sounds bilaterally. Absent: respiratory distress, wheezes, rales, rhonchi, stridor Cardiovascular Exam: Present: regular rate, normal rhythm, normal heart sounds. Absent: systolic murmur, diastolic murmur, rubs, gallop, clicks Extremities exam: Present: normal inspection, full ROM, normal capillary refill, other (2+ bilateral radial pulses. 2+ bilateral dorsalis pedis pulses. Patient has full active range of motion of all extremities. No focal bony tenderness. Equal strength bilaterally with upper and lower extremities). Absent: tenderness, pedal edema, joint swelling, calf tenderness Back exam: Present: normal inspection Neurological exam: Present: alert, oriented X3, CN II-XII intact Skin exam: Present: warm, dry, intact, normal color. Absent: rash Course Vital Signs 09/10/23 09/10/23 09/10/23 13:21 13:40 15:18 Temperature 97.9 F 97.8 F Pulse Rate 62 61 62 Respiratory 18 18 16 Rate Blood Pressure 196/80 177/86 144/85 O2 Sat by Pulse 97 96 96 Oximetry Medical Decision Making - Medical Decision Making Was pt. sent in by a medical professional or institution ([facility], [employer], urgent care, hospital, or correction...) When possible be specific @ -[No] Did you speak to anyone other than the patient for history (EMS, parent, family, police, friend...)? What history was obtained from this source @ -[No] Did you review nursing and triage notes (agree or disagree)? Why? @ -[I reviewed and agree with nursing and triage notes] Were old charts reviewed (outside hosp., previous admission, EMS record, old EKG, old radiological studies, urgent care reports/EKG's, correction records)? Report findings @ -[No old charts were reviewed] Differential Diagnosis (chest pain, altered mental status, abdominal pain women, abdominal pain men, vaginal bleeding, weakness, fever, dyspnea, syncope, headache, dizziness, GI bleed, back pain, seizure, CVA, palpatations, mental health, musculoskeletal)? @ -Intracranial hemorrhage, fracture, dislocation, hematoma, concussion...This list is not meant to be all-inclusive EKG interpreted by me (3pts min.). @ -None X-rays interpreted by me (1pt min.). @ -[None done] CT interpreted by me (1pt min.). @ -CT brain C-spine negative for acute intracranial process, fractures or dislocations. U/S interpreted by me (1pt. min.). @ -[None done] What testing was considered but not performed or refused? (CT, X-rays, U/S, labs)? Why? @ -[None] What meds were considered but not given or refused? Why? @ -Analgesic medications considered. Patient refused as she took medication prior to arrival. Did you discuss the management of the patient with other professionals (professionals i.e. , PA, [employer], lab, RT, psych nurse, social services director, resident physician in radiology, teacher, digital marketing officer, machine adjuster leader case trim)? Give summary @ -[No] Was smoking cessation discussed for >3mins.? @ -[No] Was critical care preformed (if so, how long)? @ -[No] Were there social determinants of health that impacted care today? How? (Homelessness, low income, unemployed, alcoholism, drug addiction, transportation, low edu. Level, literacy, decrease access to med. care, prison, rehab)? @ -[No] Was there de-escalation of care discussed even if they declined (Discuss DNR or withdrawal of care, Hospice)? DNR status @ -[No] What co-morbidities impacted this encounter? (DM, HTN, Smoking, COPD, CAD, Cancer, CVA, ARF, Chemo, Hep., AIDS, mental health diagnosis, sleep apnea, morbid obesity)? @ -[None] Was patient admitted / discharged? Hospital course, mention meds given and route, prescriptions, significant lab abnormalities, going to OR and other pertinent info. @ -[Discharge. 83-year-old female presenting to the ER with a chief complaint of a fall. History and physical exam completed. Vitals stable. Patient was in no signs of acute distress and nontoxic appearing. No acute neurological findings on exam. There was a hematoma to the posterior scalp. No laceration or wounds. Bilateral upper and lower extremities neurovascularly intact with no focal bony tenderness. CT brain C-spine negative for acute intracranial process, fractures or dislocations. Patient refuses analgesic medications. Upon reevaluation, patient resting complaint exam room signs of acute distress. Results discussed with patient, all questions answered. I advised [id number] Tylenol and Motrin for pain control. I also recommended ice for hematoma. Patient stable for discharge at this time. Return parameters disc ussed. Patient discharged in stable condition with follow-up to PCP. Patient verbally expressed understanding and agreement with care plan. Case discussed with the attending, Dr. De Leon.] Undiagnosed new problem with uncertain prognosis? @ -[No] Drug Therapy requiring intensive monitoring for toxicity (Heparin, Nitro, Insulin, Cardizem)? @ -[No] Were any procedures done? @ -[No] Diagnosis/symptom? @ -Scalp hematoma/Fall Acute, or Chronic, or Acute on Chronic? @ -Acute Uncomplicated (without systemic symptoms) or Complicated (systemic symptoms)? @ -Uncomplicated Side effects of treatment? @ -[No] Exacerbation, Progression, or Severe Exacerbation? @ -[No] Poses a threat to life or bodily function? How? (Chest pain, USA, AR, pneumonia, PE, COPD, DKA, ARF, appy, cholecystitis, CVA, Diverticulitis, Homicidal, Suicidal, threat to staff... and all critical care pts) @ -[No] - Radiology Data Radiology results: report reviewed, image reviewed Disposition Clinical Impression: Fall, Scalp hematoma Disposition: HOME SELF-CARE Condition: Stable Instructions (If sedation given, give patient instructions): Fall Prevention (ED) Additional Instructions: Please follow-up with PCP in the next 1-2 days. Return to the ER for new or worsening concerns. Is patient prescribed a controlled substance at d/c from ED?: No Referrals: Tyshawn Ramirez DO [Primary Care Provider] - 1-2 days Time of Disposition: 15:03
--- NOTE | 2023-09-10 14:47 | CT ---
EXAMINATION TYPE: CT brain andrea chan con DATE OF EXAM: 09/10/2023 COMPARISON: Head CT dated 07/01/2014 HISTORY: pain after fall and hit back of head on pavement CT DLP: 1359.2 mGycm Automated exposure control for dose reduction was used. TECHNIQUE: CT scan of the head and cervical spine are performed without contrast. Findings: Head CT: Ventricles, basal cisterns and sulci over convexities within normal limits for the patient's age and there is no mass, mass effect or shift of midline structures. There is mild decreased intensity in the periventricular white matter consistent with mild ischemic w freddy matter demyelination. There is no acute intra or extra-axial hemorrhage. Posterior fossa including the brainstem, fourth ventricle and cerebellar pontine angles are grossly n ormal. There are focal calcifications of the retina of both globes. The paranasal sinuses and mastoid air cells are well aerated. CT cervical spine: Craniovertebral junction relationships and prevertebral soft tissues are normal. The cervical vertebral segments are normal in height and alignment and there is no fracture subluxati on. There is moderate to marked degenerative disc disease at the C4-5, C5-6 and C6-7 levels. There is mod erate degeneration of the uncovertebral joints from C5 4 through C7. There is no bony encroachment of the cervical canal or neuroforamina. The paraspinal soft tissues unremarkable. IMPRESSION: 1. Head CT: No acute bleed or mass effect. 2. CT cervical spine: No acute trauma. Degenerative changes as described above.
[2023-09-10 15:23] VITALS: BP 144/85; PULSE 62; RESP 16; TEMP 97.8
== END 2023-09-10 15:25 | disposition home or self-care (01) ==
LOC: EC 13:16
DX: S00.03XA Contusion of scalp, initial encounter (principal); Z88.0 Allergy status to penicillin; Z88.1 Allergy status to other antibiotic agents; Z88.8 Allergy status to other drugs, medicaments and biological substances; Z88.2 Allergy status to sulfonamides; W18.30XA Fall on same level, unspecified, initial encounter; Y92.511 Restaurant or cafe as the place of occurrence of the external cause
CPT/HCPCS: 70450; 72125; 99283

== ENCOUNTER → 2023-12-10 | Outpatient (CLI) | payer MEDICARE, BC ==
[2023-12-10 13:35] VITALS: BP 168/72; PULSE 61; RESP 16; TEMP 98.2
[2023-12-10] MEDS: DENOSUMAB 60 MG/ML 1 ML SYRINGE SQ NR (13:35)
== END ==
LOC: PROCWHC3 12:46
PROVIDERS: ATTEND Family Medicine
DX: M81.0 Age-related osteoporosis without current pathological fracture (principal)
CPT/HCPCS: 96372

== ENCOUNTER → 2023-12-24 | Outpatient (CLI) | payer MEDICARE, BC ==
[2023-12-24 11:00] LABS: ALT 23 U/L (8-44); AST 26 U/L (13-35); Albumin 4.4 g/dL (3.8-4.9); Alkaline Phosphatase 186 U/L (41-126); BUN/Creat Ratio 31.17 Ratio (12.00-20.00); Blood Urea Nitrogen 18.7 mg/dL (9.0-27.0); Calcium 9.3 mg/dL (8.7-10.3); Carbon Dioxide 25.7 mmol/L (21.6-31.8); Chloride 100 mmol/L (96-109); Chol/HDL Ratio 2.24 Ratio; Globulin 2.1 g/dL (1.6-3.3); Glucose 74 mg/dL (70-110); Potassium 4.3 mmol/L (3.5-5.5); Sodium 134 mmol/L (135-145); Total Bilirubin 0.3 mg/dL (0.3-1.2); Total Protein 6.5 g/dL (6.2-8.2); VLDL Calculation 12.18 mg/dL (5.00-40.00)
== END | disposition home or self-care (01) ==
LOC: LABWHC1 07:58
PROVIDERS: ATTEND Internal Medicine Interventional Cardiology
DX: E87.1 Hypo-osmolality and hyponatremia (principal); E78.2 Mixed hyperlipidemia
CPT/HCPCS: 36415; 80053; 80061

== ENCOUNTER → 2024-05-29 | Outpatient (CLI) | payer MEDICARE, BC ==
--- NOTE | 2024-05-29 15:19 | CT ---
EXAMINATION TYPE: CT chest wo con DATE OF EXAM: 05/29/2024 COMPARISON: None CLINICAL INDICATION: Female, 84 years old with history of R93.89 ABNORMAL FINDINGS ON DX IMAGING OF O TH BODY; PHH, abn CXR, recent Covid TECHNIQUE: CT scan of the thorax is performed without IV contrast. CT DLP: [address] CTDI: mGy Automated exposure control for dose reduction was used. FINDINGS: Findings: There are a few scattered micronodules. There is no lung consolidation or abnormal interstitial density. There is no pleural effusion or pneumothorax. The great vessels are normal in size. There is mild cardiomegaly. There is no mediastinal, hilar or axillary adenopathy. Limited scanning through the upper abdomen reveals no gross abnormality. There are no focal osseous lesions. IMPRESSION: 1. No acute cardiopulmonary disease. 2. No suspicious lung mass or nodule. [facility], , 05/29/2024 3:17 PM
== END | disposition home or self-care (01) ==
LOC: RADCTMAIN 13:48
PROVIDERS: ATTEND Family Medicine
DX: R93.89 Abnormal findings on diagnostic imaging of other specified body structures (principal)
CPT/HCPCS: 71250

== ENCOUNTER → 2024-06-27 | Outpatient (CLI) | payer MEDICARE, BC ==
[2024-06-27 11:46] VITALS: BP 117/59; PULSE 68; RESP 16; TEMP 97.8
[2024-06-27] MEDS: DENOSUMAB 60 MG/ML 1 ML SYRINGE SQ NR (11:50)
== END ==
LOC: PROCWHC3 11:25
PROVIDERS: ATTEND Family Medicine
DX: M81.0 Age-related osteoporosis without current pathological fracture (principal)
CPT/HCPCS: 96372; J0897

== ENCOUNTER → 2024-08-13 | Outpatient (CLI) | payer MEDICARE, BC ==
[2024-08-13 15:28] LABS: ALT 29 U/L (8-44); AST 29 U/L (13-35); Albumin/Globulin Ratio 2.11 Ratio (1.60-3.17); Alkaline Phosphatase 110 U/L (41-126); BUN/Creat Ratio 31.86 Ratio (12.00-20.00); Blood Urea Nitrogen 22.3 mg/dL (9.0-27.0); Calcium 9.5 mg/dL (8.7-10.3); Carbon Dioxide 28.4 mmol/L (21.6-31.8); Chloride 103 mmol/L (96-109); Chol/HDL Ratio 2.58 Ratio; Globulin 1.9 g/dL (1.6-3.3); Glucose 82 mg/dL (70-110); LDL Cholesterol,Calculated 82.6 mg/dL (0.0-131.0); Potassium 3.8 mmol/L (3.5-5.5); Sodium 140 mmol/L (135-145); Total Bilirubin 0.3 mg/dL (0.3-1.2); Total Protein 5.9 g/dL (6.2-8.2); VLDL Calculation 19.08 mg/dL (5.00-40.00)
== END | disposition home or self-care (01) ==
LOC: LABWHC1 08:19
PROVIDERS: ATTEND Nurse Practitioner Adult Health
DX: I10 Essential (primary) hypertension (principal); E78.2 Mixed hyperlipidemia
CPT/HCPCS: 36415; 80053; 80061

== ENCOUNTER → 2024-08-21 | Outpatient (CLI) | payer MEDICARE, BC ==
--- NOTE | 2024-08-21 14:50 | US ---
EXAMINATION TYPE: US venous doppler duplex LE RT DATE OF EXAM: 08/21/2024 2:41 PM COMPARISON: Right lower extremity venous ultrasound 07/09/24 CLINICAL INDICATION: Female, 84 years old with history of I82.401 EMBOLISM; Rule out DVT, Pain TECHNIQUE: The lower extremity deep venous system is examined utilizing real time linear array sonog carlos with graded compression, color doppler sonography, and spectral doppler. SIDE PERFORMED: Right FINDINGS: VESSELS IMAGED: Common Femoral Vein Deep Femoral Vein Greater Saphenous Vein * Femoral Vein Popliteal Vein Small Saphenous Vein * Proximal Calf Veins (* superficial vessels) Right Leg: No evidence for DVT, Color Doppler imaging shows patency of the vessels. Spectral wavefor ms are within normal limits. IMPRESSION: No evidence of deep vein thrombosis of the right lower extremity. [facility], , 08/21/2024 2:48 PM
== END | disposition home or self-care (01) ==
LOC: RADUSWWP 14:07
PROVIDERS: ATTEND Psychiatry & Neurology Neurology
DX: I82.401 Acute embolism and thrombosis of unspecified deep veins of right lower extremity (principal)